=== PATIENT | male | born 2000 | race Caucasian/White ===

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

== ENCOUNTER 2022-01-14 14:28 | Emergency (ER) | payer MEDICAID ==
[~2022-01-14] VITALS: Ht 170.2 cm; Wt 48.7 kg
[~2022-01-14 14:28] MED LIST: ONDA4TAB12 PO
[2022-01-14 14:39] VITALS: BP 121/66
[2022-01-14 15:22] LABS: HEMOGLOBIN 16.3 g/dl (14.0-17.9); MEAN PLATELET VOLUME 6.7 FL (7.4-10.4)
[2022-01-14 15:24] LABS: BASOPHILS % (AUTO) 0.6 % (0-1); EOSINOPHILS % (AUTO) 0.6 % (0-6); HEMATOCRIT 46.5 % (42.0-52.0); LYMPHOCYTES # (AUTO) 1.7 X10'3 (1.1-4.8); LYMPHOCYTES % (AUTO) 31.1 % (21-51); MEAN CORPUSCULAR HEMOGLOBIN 27.7 PG (27.0-31.0); MONOCYTES # (AUTO) 0.7 X10'3 (0-0.9); MONOCYTES % (AUTO) 12.7 % (2-12); NEUTROPHILS # (AUTO) 3.1 X10'3 (1.8-7.7); PLATELET COUNT 253 X10'3 (140-440); RED BLOOD COUNT 5.89 X10'6 (4.70-6.10); RED CELL DISTRIBUTION WIDTH 13.8 % (11.5-14.5); WHITE BLOOD COUNT 5.6 X10'3 (4.5-11.0)
[2022-01-14 15:29] LABS: ALANINE AMINOTRANSFERASE 30 U/L (12-78); ALBUMIN 4.2 G/DL (3.4-5.0); ALBUMIN/GLOBULIN RATIO 1.1 (1.1-1.5); ALKALINE PHOSPHATASE 153 IU/L (20-180); ANION GAP 9 (8-16); ASPARTATE AMINO TRANSFERASE 23 U/L (10-37); BILIRUBIN,TOTAL 0.7 MG/DL (0.1-1.0); BLOOD UREA NITROGEN 11 MG/DL (7-18); BUN/CREATININE RATIO 12.8 (5.4-32.0); CHLORIDE 100 MMOL/L (99-107); CREATININE 0.86 MG/DL (0.60-1.10); GLUCOSE 138 MG/DL (70-104); LIPASE 51 U/L (73-393); POTASSIUM 3.7 MMOL/L (3.5-5.1); SODIUM 137 MMOL/L (135-145); TOTAL CARBON DIOXIDE 28.1 MMOL/L (24-32); TOTAL PROTEIN 8.1 G/DL (6.4-8.2); eGFR > 90 ML/MIN
[2022-01-14] MEDS ORDERED: normal saline 1000ML IV soln IVB ONE (17:40)
[2022-01-14] MEDS ORDERED: ondansetron/PF 4mg/2ml inj IV ONE (17:40)
[2022-01-14] MEDS ORDERED: pantoprazole 40 MG vial IV ONE (17:40)
[2022-01-14] MEDS ORDERED: pantoprazole 40 MG/NS 100ML add-vantage BAG IV ONE (17:50)
[2022-01-14 18:04] LABS: CLARITY,URINE SLIGHTLY CLOUDY (Clear); GLUCOSE, URINE NEGATIVE (Neg); KETONES,URINE NEGATIVE (Neg); LEUKOCYTE ESTERASE ,URINE NEGATIVE (Neg); NITRITES, URINE NEGATIVE (Neg); OCCULT BLOOD,URINE NEGATIVE (Neg); PROTEIN,URINE NEGATIVE (Neg)
[2022-01-14 18:05] LABS: UA COLLECTION TYPE CLN CATCH MIDSTREAM
[2022-01-14 18:06] LABS: COLOR,URINE YELLOW (Yellow)
[2022-01-14] MEDS ORDERED: PANT-47 PO (18:18)
[2022-01-14] MEDS ORDERED: ONDA8TAB13 PO (18:18)
[2022-01-14] MEDS ORDERED: pantoprazole 40mg Tablet.DR PO ONE (18:20)
[2022-01-14] MEDS ORDERED: ondansetron 4mg rapidly disintigrating tab PO ONE (18:20)
[2022-01-14 18:23] LABS: RBC,URINE NONE SEEN /HPF (0-2); WBC,URINE 0-4 /HPF (0-4)
[2022-01-14 18:24] LABS: AMORPHOUS PHOSPHATES 2+; BACTERIA,URINE NONE SEEN /HPF (Neg); MUCUS STRANDS MODERATE /LPF (Neg); SQUAMOUS EPITHELIAL CELL,UR FEW /LPF (FEW)
== END 2022-01-14 18:46 | disposition home or self-care (01) ==
LOC: ER 14:29
DX: K29.70 Gastritis, unspecified, without bleeding (principal); K21.9 Gastro-esophageal reflux disease without esophagitis; G43.909 Migraine, unspecified, not intractable, without status migrainosus; F17.200 Nicotine dependence, unspecified, uncomplicated; F12.10 Cannabis abuse, uncomplicated; Z79.899 Other long term (current) drug therapy
CPT/HCPCS: 74022; 80053; 81001; 83690; 85025; 99284; J7030

== ENCOUNTER 2022-01-19 10:36 | Emergency (ER) | payer MEDICAID ==
[~2022-01-19] VITALS: Ht 170.2 cm; Wt 48.0 kg
[~2022-01-19 10:36] MED LIST changes: +ONDA8TAB13 PO; +PANT-47 PO
[2022-01-19 10:55] VITALS: BP 117/72
== END 2022-01-19 16:47 | disposition left against medical advice (07) ==
LOC: VAS 10:37
DX: R10.9 Unspecified abdominal pain (principal); Z53.21 Procedure and treatment not carried out due to patient leaving prior to being seen by health care provider; G43.909 Migraine, unspecified, not intractable, without status migrainosus; K21.9 Gastro-esophageal reflux disease without esophagitis
CPT/HCPCS: J7120

== ENCOUNTER 2022-11-21 23:09 | Emergency (ER) | payer MEDICAID ==
[~2022-11-21] VITALS: Ht 170.2 cm; Wt 54.5 kg
[2022-11-21 23:13] VITALS: BP 129/107
[2022-11-21] MEDS ORDERED: TETanus/Pertussis (Acell)/Diphther VAC/PF (Tdap-Adult) 0.5ml syringe IMVAC ONE (23:25)
[2022-11-21] MEDS ORDERED: LIDOcaine 1% 30ml preserv. free vial IJ ONE (23:25)
[2022-11-22] MEDS ORDERED: AMOX500C2 PO (00:32)
== END 2022-11-22 00:55 ==
LOC: ER 23:10
DX: S61.411A Laceration without foreign body of right hand, initial encounter (principal); G43.909 Migraine, unspecified, not intractable, without status migrainosus; K21.9 Gastro-esophageal reflux disease without esophagitis; F12.10 Cannabis abuse, uncomplicated; Z79.899 Other long term (current) drug therapy; X58.XXXA Exposure to other specified factors, initial encounter; Y93.89 Activity, other specified; Y92.89 Other specified places as the place of occurrence of the external cause; Y99.8 Other external cause status
CPT/HCPCS: 12002; 73120; 90715; 99283

== ENCOUNTER 2024-09-09 12:54 | Emergency (ER) | payer MEDICAID, OTHER ==
[~2024-09-09] VITALS: Ht 170.2 cm; Wt 52.4 kg
[~2024-09-09 12:54] MED LIST changes: +ONDA-243 PO; +ONDA-245 PO; -ONDA4TAB12 PO; -ONDA8TAB13 PO
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
[2024-09-09] MEDS ORDERED: IBUP-1986 PO (15:18)
[2024-09-09] MEDS: ketorolac trometh 15mg/ml vial 15 MG/ML ML IM ONE (15:29)
[2024-09-09 15:50] VITALS: BP 113/76; PULSE 76; RESP 16; TEMP 97.2; O2SAT 100
== END 2024-09-09 15:54 | disposition home or self-care (01) ==
LOC: ER 12:55
DX: S06.0X0A Concussion without loss of consciousness, initial encounter (principal); M54.2 Cervicalgia; M54.9 Dorsalgia, unspecified; M54.6 Pain in thoracic spine; M25.561 Pain in right knee; R07.89 Other chest pain; F12.90 Cannabis use, unspecified, uncomplicated; V49.9XXA Car occupant (driver) (passenger) injured in unspecified traffic accident, initial encounter; Y93.89 Activity, other specified; Y92.410 Unspecified street and highway as the place of occurrence of the external cause; Y99.8 Other external cause status
CPT/HCPCS: 70450; 71045; 72125; 72128; 72131; 73564; 96372; 99285; J1885